=== PATIENT | female | born 1940 | race Caucasian/White ===

== ENCOUNTER 2017-11-24 04:43 | Emergency (ER) | payer MEDICARE, MEDICAID ==
[~2017-11-24] VITALS: Ht 157.5 cm; Wt 68.2 kg
[~2017-11-24 04:43] MED LIST: ALBU18HF2 INH; ASCO10007 PO; CYAN100097 PO; DEXA4TAB PO; DOCU100C41 PO; FLUT1DIS4 INH; IBUP-1986 PO; LORA-269 PO; LORA10TA61 PO; MONT10TA21 PO; SIMV20TA5 PO; SPIIN INH
[2017-11-24] MEDS ORDERED: ketorolac trometh inj. 60 MG/2 ML VIAL IM ONE (05:00)
[2017-11-24 05:45] VITALS: BP 113/68
== END 2017-11-24 08:55 | disposition home or self-care (01) ==
LOC: ER 04:44
DX: M54.5 Low back pain (principal); G89.29 Other chronic pain; E78.00 Pure hypercholesterolemia, unspecified; J44.9 Chronic obstructive pulmonary disease, unspecified; M19.90 Unspecified osteoarthritis, unspecified site; Z88.5 Allergy status to narcotic agent; Z88.8 Allergy status to other drugs, medicaments and biological substances; Z79.899 Other long term (current) drug therapy
CPT/HCPCS: 96372; 99284; J1885